=== PATIENT | female | born 1955 | race Caucasian/White ===

== ENCOUNTER 2018-08-09 00:36 | Outpatient (CLI) | payer BC, SELFPAY ==
--- NOTE | 2018-08-09 08:11 | DI.US_ITS ---
SYMPTOMS/DIAGNOSIS: F/U ABNL LABS, R74.8 ABDOMINAL ULTRASOUND: The visualized liver parenchyma is normal in appearance with the exception of two small homogeneous echogenic lesions of the right hepatic lobe as noted on previous ultrasound of 06/16/17. These measure roughly 6 and 9 mm in diameter respectively and appear unchanged from the previous study. These are likely to represent hemangiomas. There is no evidence of cholelithiasis or biliary dilatation. The pancreas appears intact as visualized. The kidneys are unremarkable as is the spleen. The abdominal aorta and IVC are of normal diameter. CONCLUSION: Two small stable presumed hepatic hemangiomas. No evidence of cholelithiasis.
== END 2018-08-09 00:56 ==
PROVIDERS: PCP Nurse Practitioner Family
DX: R74.8 Abnormal levels of other serum enzymes (principal); K76.9 Liver disease, unspecified; D18.03 Hemangioma of intra-abdominal structures
CPT/HCPCS: 76700

== ENCOUNTER 2018-08-27 09:29 | Outpatient (CLI) | payer BC, SELFPAY ==
[2018-08-27 10:48] LABS: Amylase 136 U/L (25-115); Lipase 487 U/L (73-393)
[2018-08-30 17:16] LABS: T3 (Triiodothyronine) Reverse 11 ng/dL (10-24)
== END 2018-08-27 09:49 ==
PROVIDERS: PCP Nurse Practitioner Family
DX: R10.84 Generalized abdominal pain (principal); E03.9 Hypothyroidism, unspecified
CPT/HCPCS: 36415; 83690; 82150; 84482

== ENCOUNTER 2018-09-25 01:48 | Outpatient (CLI) | payer BC, SELFPAY ==
[2018-09-25 08:39] LABS: Iron 129 ug/dL (50-175); Total Iron Binding Capacity 310 ug/dL (250-450); Transferrin Sat 42 % (15-50)
[2018-09-25 08:50] LABS: Anion Gap 6.6 mmol/L (3-11); CO2 29.4 mmol/L (21.0-32.0); Chloride 97 mmol/L (98-107); FREE T4 0.74 ng/dL (0.76-1.46); Potassium 4.3 mmol/L (3.5-5.1); Sodium 133 mmol/L (136-145); TSH 0.36 uIU/mL (0.358-3.74)
[2018-09-25 09:17] LABS: Ferritin 56 ng/mL (8-388)
[2018-09-25 18:00] LABS: Osmolality Serum 276 mos/kg (275-295)
[2018-09-26 10:26] LABS: Thyroperoxidase Antibody 109 U/mL (<61)
[2018-09-28 10:26] LABS: T3 (Triiodothyronine) Reverse 9.4 ng/dL (10-24)
== END 2018-09-25 02:08 ==
PROVIDERS: PCP Nurse Practitioner Family; Visit Provider Nurse Practitioner Family
DX: E03.9 Hypothyroidism, unspecified (principal); R53.82 Chronic fatigue, unspecified; R10.84 Generalized abdominal pain; R25.3 Fasciculation; G62.2 Polyneuropathy due to other toxic agents; G92 Toxic encephalopathy; D89.89 Other specified disorders involving the immune mechanism, not elsewhere classified; G89.4 Chronic pain syndrome; H53.19 Other subjective visual disturbances; T57.0X1 Toxic effect of arsenic and its compounds, accidental (unintentional); T56.0X1D Toxic effect of lead and its compounds, accidental (unintentional), subsequent encounter
CPT/HCPCS: 36415; 80051; 82728; 83540; 83550; 83930; 84436; 84439; 84443; 84480; 84482; 86376

== ENCOUNTER 2018-12-26 09:23 | Outpatient (CLI) | payer BC, SELFPAY ==
[2018-12-26 16:47] LABS: Amylase 115 U/L (25-115); Lipase 292 U/L (73-393)
== END 2018-12-26 09:43 ==
PROVIDERS: PCP Nurse Practitioner Family
DX: E03.9 Hypothyroidism, unspecified (principal); R53.82 Chronic fatigue, unspecified; R10.84 Generalized abdominal pain; R25.3 Fasciculation; G89.4 Chronic pain syndrome; D89.89 Other specified disorders involving the immune mechanism, not elsewhere classified; G62.2 Polyneuropathy due to other toxic agents; G92 Toxic encephalopathy
CPT/HCPCS: 36415; 83690; 82150

== ENCOUNTER 2020-06-10 02:05 | Outpatient (CLI) | payer BC, SELFPAY ==
--- NOTE | 2020-06-10 | DI.US_ITS ---
EXAM: US THYROID CLINICAL HISTORY: THYROID NODULE,E04.1,SABA'S THYROIDITIS,E06.3. TECHNIQUE: Ultrasound thyroid performed using standard protocol. COMPARISON: No exams were available for comparison FINDINGS: ISTHMUS: 2.6 millimeters mm RIGHT LOBE: Size: 2.6 x 1.1 x 1.1 cm LEFT LOBE: Size: 3.1 x 1.0 x 1. 4 cm. Cm Echogenicity: Normal. Homogeneous. Vascularity: Mild hyperemia . Nodules: Few scattered tiny nodules versus cysts bilaterally measuring 2 millimeters or less.. IMPRESSION: Scattered tiny cysts or nodules. Mildly hyperemic gland. No suspicious nodule. DATA REPOSITORY:
== END 2020-06-10 02:06 ==
PROVIDERS: PCP Nurse Practitioner Family; Visit Provider Nurse Practitioner Family
DX: E04.1 Nontoxic single thyroid nodule (principal); E06.3 Autoimmune thyroiditis
CPT/HCPCS: 76536

== ENCOUNTER 2020-08-24 04:12 | Outpatient (CLI) | payer BC, SELFPAY ==
[2020-08-24 08:41] LABS: FREE T4 0.73 ng/dL (0.76-1.46); TSH 6.12 uIU/mL (0.36-3.74)
[2020-08-24 08:51] LABS: T4 6.3 ug/mL (4.7-13.3)
[2020-08-27 12:43] LABS: T3 (Triiodothyronine) Reverse 12 ng/dL (10-24)
== END 2020-08-24 04:13 | disposition home or self-care (01) ==
LOC: LBO 04:12
PROVIDERS: PCP Nurse Practitioner Family; Visit Provider Nurse Practitioner Family
DX: E04.1 Nontoxic single thyroid nodule (principal)
CPT/HCPCS: 36415; 84436; 84439; 84443; 84481; 84482

== ENCOUNTER 2021-10-21 18:29 | Outpatient (REF) | payer OTHER, SELFPAY ==
--- NOTE | 2021-10-21 11:50 | PAPFT_PTH ---
PATIENT: Ofelia Vasquez LOC: [facility] U#:[id number] AGE/SX: 66/F ROOM: RE10/21/[address]: Poonam Soria : 1955 BED: DIS: 10/21/2021 SPEC #: [id number] RECD: 10/21/21 18:34 STATUS: LEESA REEliezer #: [id number] TK: 10/21/21 11:[address]: Poonam Soria DEPT: [facility] Cytology RECD BY: Leidy Hooks ENTERED: 10/21/21 18:35 SP TYPE: PAPFT OTHR DR: Eryn Mi Tissues: 1 - CX/ENDOCX FOR PAP SMEARS Procedures: PAP THIN PREP/UVM Screening Comments: [id number]
== END 2021-10-21 18:30 | disposition home or self-care (01) ==
LOC: LBN 18:29
PROVIDERS: PCP Nurse Practitioner Family; Visit Provider Naturopath
DX: Z12.4 Encounter for screening for malignant neoplasm of cervix (principal)
CPT/HCPCS: 88142

== ENCOUNTER 2021-12-15 12:46 | Outpatient (CLI) | payer OTHER, SELFPAY ==
[2021-12-15 13:06] LABS: ALT 30 U/L (14-59); AST 23 U/L (15-37); Albumin 3.8 g/dL (3.4-5.0); Alkaline Phosphatase 67 U/L (46-116); Amylase 106 U/L (25-115); Anion Gap 5.6 mmol/L (3-11); BUN 19 mg/dL (7-18); Bilirubin, Total 0.2 mg/dL (0.2-1.0); CO2 29.4 mmol/L (21.0-32.0); CREATININE 0.9 mg/dL (0.55-1.02); Calcium 8.9 mg/dL (8.5-10.1); Chloride 100 mmol/L (98-107); Glucose 107 mg/dL (74-106); Lipase 297 U/L (73-393); Potassium 4.4 mmol/L (3.5-5.1); Sodium 135 mmol/L (136-145); Total Protein 7.2 g/dL (6.4-8.2)
== END 2021-12-15 12:47 | disposition home or self-care (01) ==
LOC: LBO 12:47
PROVIDERS: PCP Nurse Practitioner Family; Visit Provider Naturopath
DX: R73.9 Hyperglycemia, unspecified (principal); R85.0 Abnormal level of enzymes in specimens from digestive organs and abdominal cavity
CPT/HCPCS: 36415; 80053; 83690; 82150; 83036

== ENCOUNTER 2022-11-07 05:46 | Observation (INO) | payer MEDICARE, SELFPAY ==
[2022-11-07] VITALS (16 sets, daily range): BP systolic 113–162; BP diastolic 39–93; PULSE 48–78; RESP 16–18; TEMP 35.8–36.9; O2SAT 97–100; BMI 23.6
--- NOTE | 2022-11-07 05:45 | RT.EKG_ITS ---
APPROVED REPORT Exam: Resting ECG Reason for Exam: lower pain Patient Location: E HR:70 bpm ECG Measurements Heart Rate 70 AXIS MD 164 P 56 QRSd 91 QRS 24 QT 382 T 30 QTc 411 Conclusion Sinus rhythm...normal P axis, V-rate 60- 99 Atrial premature complex...SV complex w/ short R-R interval Probable left atrial enlargement...P >50mS, <-0.10mV V1
--- NOTE | 2022-11-07 06:00 | DI.CT_ITS ---
Exam(s) CT ABDOMEN PELVIS W EXAM: CT ABDOMEN PELVIS W CLINICAL HISTORY: RLQ pain. TECHNIQUE: Imaging Protocol: Axial computed tomography images with coronal and sagittal reformatted images were created and reviewed CONTRAST MATERIAL: Intravenous: Omnipaque-350 73cc Oral: None COMPARISON: Prior ultrasound reviewed FINDINGS: VISUALIZED LUNG BASES: No nodules nor pleural effusions evident. ABDOMEN: LIVER: Small benign-appearing hemangiomas in the right hepatic lobe again noted. No dilated intrahep atic ducts. GALLBLADDER/BILIARY: No obvious gallbladder pathology. CBD is not dilated. PANCREAS: No evidence of pancreatic mass nor dilatation of the pancreatic duct. SPLEEN: Spleen is not enlarged. No obvious intrasplenic lesions. Splenic and portal veins are paten t. ADRENALS: There are no significant adrenal masses. KIDNEYS:No cysts evident. No solid renal masses. No calculi nor hydronephrosis.. ABDOMINAL AORTA: Abdominal aorta is not enlarged. LYMPH NODES:There is no retroperitoneal nor paraaortic adenopathy. ABDOMINAL WALL: No evidence of significant anterior abdominal wall nor inguinal hernia. GI: Appendix is abnormally thickened-edematous and distended consistent with acute appendicitis. The re is surrounding inflammatory change fluid as well as some fluid in the dependent aspect of the pelv kt-blw-gi-sac. No formed abscess evident at this time. PELVIS: GI: Appendicitis as above.Edema of the adjacent terminal ileum is most probably reactive. LYMPH NODES: There is no intrapelvic nor inguinal adenopathy. REPRODUCTIVE: Age-appropriate URINARY BLADDER: Mild uniform thickening of the bladder wall noted. Possibly related to under disten marshall versus chronic cystitis. OSSEOUS: No fractures and no significant osseous lesions. Mild degenerative anterolisthesis of L5 upon S1. IMPRESSION: 1. Findings are consistent with acute appendicitis. Abundant surrounding streaking and some free flu id but no formed abscess evident at this time. No obvious free air at this time. 2. Some edema of the terminal ileum and cecum is most probably reactive the acute appendicitis. First read by [facility]. RADIATION DOSE DELIVERED: 594.36mGy.cm Total DLP DATA REPOSITORY: All CT scans at this facility are submitted to the National Radiology Data Registry (NRDR) Dose Index Registry (DIR) with the [employer] (ACR). RADIATION OPTIMIZATION: All CT scans at this facility use at least one of these dose optimization te chniques: automated exposure control; mA and/or kV adjustment per patient size (includes targeted exa ms where dose is matched to clinical indication); or iterative reconstruction.
--- NOTE | 2022-11-07 06:04 | ED.GENADUL_ITS ---
Discharge Plan Disposition Patient Disposition: Admit to [facility] Discharge Details Clinical Impression: Acute appendicitis, Suppurative appendicitis Admit Date/Time: 11/07/22 13:43 Admit Provider: Carmen Rivera Attending Provider: Carmen Rivera Primary Care Provider: Eryn Mi ED Provider: Shay Jamison Discharge Data Discharge Date/Time-TO BE ENTERED AT DEPARTURE: 11/07/22 10:15 Discharge Physician: Shay Jamison Medical Decision Making Lab Data Lab results reviewed: Yes I reviewed the patient's lab results. HPI General Date/Time Provider Initiated Documentation: 11/07/22 06:02 . HPI Narrative: Patient presents emergency department complaining of right lower quadrant abdominal pain that started 3 days ago. Reports that the pain started in the ep igastric and midepigastric area and has moved to the right lower quadrant. She thought it was getting better and decided not to come in but her insisted for the pain is getting severe and she is not eating because she was trying to rest her bowels patient denies any fever denies any chills. Reports the pain is a 10/08 pain Related Data Home Medications Medication Instructions Recorded Confirmed Hm-Et Binder 11/07/22 liver extract cap PO DAILY 11/07/22 minerals tab PO 11/07/22 thyme oil applic miscellaneous 11/07/22 Allergies Allergy/AdvReac Type Severity Reaction Status Date / Time gluten Allergy Unverified 11/07/22 10:19 General Stated Complaint: Abd Prob CONSUELO: 3 Review of Systems Narrative: Review of Systems: Constitutional: No fevers, chills, sweats Eye: No recent visual problems ENT: No ear pain, nasal congestion, sore throat Respiratory: No shortness of breath, cough Cardiovascular: No Chest pain, palpitations, syncope Gastrointestinal: No nausea, vomiting, diarrhea Genitourinary: No hematuria Jimi/Lymph: Negative for bruising tendency, swollen lymph glands Endocrine: Negative for excessive thirst, excessive hunger Musculoskeletal: No back pain, neck pain, joint pain, muscle pain, decreased range of motion Integumentary: No rash, pruritus, abrasions Neurologic: Alert & oriented X 4 Psychiatric: No anxiety, depression PFSH All Active Problems (Updated 11/07/22 @ 23:20 by Shay Jamison MD) Suppurative appendicitis (Acute) Acute appendicitis (Acute) Medical History (Updated 11/07/22 @ 23:20 by Shay Jamison MD) Anxiety Disease 11/07/22: Chronic inflammatory response syndrome, per pt. -BR GERD (gastroesophageal reflux disease) Raheem's thyroiditis Surgical History (Updated 11/07/22 @ 21:43 by Carmen Rivera DO) S/P laparoscopic appendectomy Social History Smoking/Tobacco Use Status: Never Smoking risk assessment performed?: Yes Alcohol Intake: never Substance use type: does not use Housing: house Do you feel safe in your relationship?: Yes Exam Narrative Exam Narrative: Exam; vitals signs as reported above Constitutional; In no acute distress, afebrile General: cooperative, healthy appearing, comfortable and no acute distress HEENT: Head: normal to inspection, no palpable skull fracture and normocephalic Eyes: l: appearance normal, both eyes and all related structures ]Pupils: PERRL EOM: EOM intact bilaterally Direct ophthalmoscopy: normal light reflex, normal conjunctiva, normal visual acuity Neck no JVD, supple Neck: normal visual inspection, full ROM and no lymphadenopathy Chest Chest: normal inspection of the chest Respiratory : normal respiratory effort and able to speak in complete sentences Cardio Rate: regular rate Rhythm: regular rhythm normal heart sounds S1 and S2 no murmurs, gallops, or rubs GI Inspection: normal to inspection, normal bowel sounds, soft, tenderness to palpation with positive rebound on the right lower quadrant non distended, no organomegally Back/Spine/ no CVA tenderness Thoracic/Lumbar Spine: no tenderness or deformities Skin no rashes or lesions Neuro: patient alert and no meningeal signs, Cranial Nerves: CN's II-XI intact bilaterally, Cognition: normal cognition, Speech: speech normal, Gait: normal gait, Depp tendon reflexes normal 2+ Extremities, no edema, full range of motion, normal strength : normal Course Vital Signs Vital signs: Vital Signs Temperature 36.9 C 11/07/22 05:50 Pulse 78 11/07/22 05:50 Respiratory Rate 16 11/07/22 05:50 Blood Pressure 147/78 H 11/07/22 05:50 Pulse Oximetry 99 11/07/22 05:50 Temperature 36.9 C 11/07/22 05:50 Temperature Source Oral 11/07/22 05:50 Pulse 78 11/07/22 05:50 Respiratory Rate 16 11/07/22 05:50 Respiratory Effort Normal, Non-Labored 11/07/22 05:55 Blood Pressure 147/78 H 11/07/22 05:50 Blood Pressure Position Sitting 11/07/22 05:50 Pulse Oximetry 99 11/07/22 05:50 Oxygen Delivery Method Room Air 11/07/22 05:50 Oxygen Flow Rate 0 11/07/22 05:50 Pain Level 8 11/07/22 05:50 Vital Signs & Lab Results Vital Signs Most Recent Vital Signs: Most Recent Vital Signs Temp Pulse Resp BP Pulse Ox 36.9 C 78 16 147/78 H 99 11/07/22 05:50 11/07/22 05:50 11/07/22 05:50 11/07/22 05:50 11/07/22 05:50 Point of Care Results Nursing Point of Care Results: No Data to Display Lab Results 11/07/22 18:45 11/07/22 06:00 Blood Type / Crossmatch: No Data to Display Complete Blood Count: White Blood Count 11.07 10^3/uL (4.4-10.8) H 11/07/22 18:45 Red Blood Count 4.27 10^6/uL (3.93-5.22) 11/07/22 18:45 Hemoglobin 13.7 g/dL (11.2-15.7) 11/07/22 18:45 Hematocrit 40.5 % (36.0-46.0) 11/07/22 18:45 Platelet Count 213 10^3/uL (130-400) 11/07/22 18:45 Complete Metabolic Panel: Sodium 138 mmol/L (136-145) 11/07/22 06:00 Potassium 3.9 mmol/L (3.5-5.1) 11/07/22 06:00 Chloride 101 mmol/L (98-107) 11/07/22 06:00 Carbon Dioxide 29.2 mmol/L (21.0-32.0) 11/07/22 06:00 BUN 10 mg/dL (7-18) 11/07/22 06:00 Creatinine 0.9 mg/dL (0.55-1.02) 11/07/22 06:00 Est GFR (CKD-EPI 2021) 70.51 (mL/min/1.73m2) 11/07/22 06:00 Calcium 8.8 mg/dL (8.5-10.1) 11/07/22 06:00 Albumin 3.7 g/dL (3.4-5.0) 11/07/22 06:00 Glucose 104 mg/dL (74-106) 11/07/22 06:00 Liver Function Panel: Alanine Aminotransferase (ALT/SGPT) 35 U/L (14-59) 11/07/22 06: 00 Aspartate Amino Transf (AST/SGOT) 23 U/L (15-37) 11/07/22 06:00 Coagulation Panel: INR International Normalized Ratio 0.9 (0.9-1.1) 11/07/22 06:0 0 Prothrombin Time 9.5 sec (9.3-11.0) 11/07/22 06:00 Cardiac Panel: No Data to Display Arterial Blood Gas: No Data to Display Venous Blood Gas: No Data to Display Pancreas Panel: Lipase 67 U/L (16-77) 11/07/22 06:00 Thyroid Panel: No Data to Display Infectious Disease: No Data to Display Blood Cultures: No Data to Display Toxicology Panel: No Data to Display
[2022-11-07 06:11] LABS: Abs Immature Grans 0.02 10^3/uL (0.0-0.06); Absolute Basophil Count 0.04 10^3/uL (0.0-0.2); Absolute Eosinophil Count 0.09 10^3/uL (0.0-0.7); Absolute Lymphocyte Count 1.68 10^3/uL (1.2-3.4); Absolute Monocyte Count 0.88 10^3/uL (0.1-0.8); Absolute Neutrophil Count 4.64 10^3/uL (1.2-6.7); Basophils % 0.5; Eosinophils % 1.2; HCT 40.6 % (36.0-46.0); HGB 13.9 g/dL (11.2-15.7); Immature Grans % 0.3; Lymphocytes % 22.9; MCH 32.1 pg (27.0-33.0); MCHC 34.2 % (32.0-36.0); MCV 94 fL (80-95); MPV 8.7 fL (8.0-11.0); Neutrophils % 63.1; Platelet Count 225 10^3/uL (130-400); RBC 4.33 10^6/uL (3.93-5.22); RDW 11.9 % (11.7-14.6); RDW-SD 41.8 fL; WBC 7.35 10^3/uL (4.4-10.8)
[2022-11-07 06:22] LABS: Lipase 67 U/L (16-77)
[2022-11-07 06:23] LABS: INR 0.9 (0.9-1.1); Prothrombin Time 9.5 sec (9.3-11.0)
[2022-11-07 06:25] LABS: Bilirubin Negative (Negative); Blood Trace-intact (Negative); Clarity Clear (Clear); Glucose Negative (Negative); Ketones 15 mg/dL (Negative); Leukocyte Esterase Negative (Negative); Nitrite Negative (Negative); Specific Gravity <= 1.005 (1.005-1.025); Urobilinogen 0.2 mg/dL (Up to 0.2); pH 5.5 (5-8)
[2022-11-07 06:27] LABS: ALT 35 U/L (14-59); AST 23 U/L (15-37); Albumin 3.7 g/dL (3.4-5.0); Alkaline Phosphatase 56 U/L (46-116); Anion Gap 7.8 mmol/L (3-11); BUN 10 mg/dL (7-18); Bilirubin, Total 0.5 mg/dL (0.2-1.0); CO2 29.2 mmol/L (21.0-32.0); CREATININE 0.9 mg/dL (0.55-1.02); Calcium 8.8 mg/dL (8.5-10.1); Chloride 101 mmol/L (98-107); Estimated GFR 70.51 (mL/min/1.73m2); Glucose 104 mg/dL (74-106); Potassium 3.9 mmol/L (3.5-5.1); Sodium 138 mmol/L (136-145); Total Protein 7.1 g/dL (6.4-8.2)
[2022-11-07 06:32] LABS: Bacteria Rare HPF (Negative); C & S Indicated? No; Casts Negative LPF (Negative); Crystals Negative HPF (Negative); Epithelial Cells Rare HPF (Negative); Mucus Negative (Negative); Other Cells Negative (Negative); WBC 0-2 HPF (0-5)
[2022-11-07] MEDS: Normal Saline 1,000 ML 1000 ML IV (06:49)
[2022-11-07] MEDS: Omnipaque 350 MG/ML 100 ML BTL 73 ML IJ (07:07)
[2022-11-07] MEDS: Normal Saline - Diluent 50 ML VIAL IV (07:08)
--- NOTE | 2022-11-07 07:33 | DI.VRAD_ITS ---
PROCEDURE INFORMATION: Exam: CT Abdomen And Pelvis With Contrast Exam date and time: 11/07/2022 6:59 AM Age: 67 years old Clinical indication: Abdominal pain; Generalized TECHNIQUE: Imaging protocol: Computed tomography of the abdomen and pelvis with contrast. Contrast material: OMNIPAQUE 350; Contrast volume: 73 ml; Contrast route: INTRAVENOUS (IV); COMPARISON: No relevant prior studies are available for comparison. FINDINGS: Limitations: Mild motion artifact. Liver: Low attenuation lesions in the liver too small to accurately characterize on CT. Gallbladder and bile ducts: No radiodense gallbladder calculi seen. Pancreas: No CT evidence for acute pancreatitis. Spleen: No splenomegaly. Adrenal glands: Adrenal thickening. Kidneys and ureters: No hydronephrosis or evidence for pyelonephritis. Stomach and bowel: Apparent gastric thickening commensurate with underdistention. No intestinal obstruction is evident. Retained fecal material is present in the colon. Appendix: The appendix is identified in the anterior right lower quadrant. It is thick-walled, fluid-filled, dilated to 11 mm, and surrounded by inflammatory change. Findings are consistent with appendicitis. Mild thickening of the terminal ileum and cecum is likely reactive. Intraperitoneal space: Small amount of low-density pelvic fluid. Vasculature: Arterial calcifications. Lymph nodes: No acute findings. Urinary bladder: Mild bladder wall thickening commensurate with underdistention. Reproductive: No acute findings. Bones/joints: No pertinent acute abnormality seen. Soft tissues: No pertinent acute abnormality seen. IMPRESSION: 1. Appendicitis. 2. Additional findings as above. 3. THIS REPORT CONTAINS FINDINGS THAT MAY BE CRITICAL TO PATIENT CARE. The findings were verbally communicated via telephone conference with SAIDA SHAW at 7:32 AM EDT on 11/07/2022. The findings were acknowledged and understood. Dictated and Authenticated by: Diana Barraza MD. Ordering:RUTHANN Day MD
[2022-11-07] MEDS: AMPICILLIN/SULBACTAM 3 GM in Normal Saline 100 ML IVPB (08:12)
--- NOTE | 2022-11-07 09:23 | W.PM.HP.N ---
Date of service: 11/07/22 Time of Service: Assessment and Plan Assessment and plan (1) Acute appendicitis: Status: Acute Assessment and plan: Informed consent is obtained for the procedural (explained in simple layman's terms that the pt and/or family could understand) explaining risks vs benefits and alternatives to the procedure and consequences if we do not do the procedure. Risks include but are not limited to:bleeding,infections, pneumonia, blood clots/DVT/PE, anesthesia(aspiration, damage to teeth/airway/KS/CVA//prolonged mechanical ventilation/PTX/IV infections), damage to bowel, bladder,blood vessels, ureters. Damage to solid organs requiring removal. Infertility. Leakage from anastomosis requiring colostomy. Wound infections requirng further surgery. Scarring and disfigurement. Subsequent bowel obstructions from scar tissue. Possible open procedure if minimaly invsive procedure is being attempted. Abscess and stump appendicitis as well as others. (2) GERD (gastroesophageal reflux disease): (3) Raheem's thyroiditis: History of Present Illness Narrative: Patient has been feeling poorly for the past 3 days. She has had right lower quadrant abdominal pain. She has no nausea vomiting. She just does not have much appetite. She is getting some pain that radiates down her right leg. She had a similar episode in 2018 but her ultrasound was negative. Today the pain is not improving. She has chronic autoimmune disease. She is not on any medications for this. She was hypothyroid but has weaned herself off of medications. She has never had any abdominal surgeries before. She is not diabetic. She has never had a heart attack or stroke. She does not smoke cigarettes. She has no asthma or emphysema. She is active. She has no known drug allergies. CT: GI: Appendix is abnormally thickened-edematous and distended consistent with acute appendicitis.? There is surrounding inflammatory change fluid as well as some fluid in the dependent aspect of the upiudt-nlk-kt-sac.? No formed abscess evident at this time. PELVIS:? GI: Appendicitis as above.Edema of the adjacent terminal ileum is most probably reactive. LYMPH NODES: There is no intrapelvic nor inguinal adenopathy. REPRODUCTIVE: Age-appropriate URINARY BLADDER: Mild uniform thickening of the bladder wall noted.? Possibly related to under distension versus chronic cystitis. OSSEOUS: No fractures and no significant osseous lesions. Mild degenerative anterolisthesis of L5 upon S1. IMPRESSION: 1. Findings are consistent with acute appendicitis.? Abundant surrounding streaking and some free fluid but no formed abscess evident at this time.? No obvious free air at this time. 2. Some edema of the terminal ileum and cecum is most probably reactive the acute appendicitis. Review of Systems All systems reviewed & are unremarkable except as noted in HPI and below PFSH All Active Problems Acute appendicitis (Acute) Medical History Anxiety Disease 11/07/22: Chronic inflammatory response syndrome, per pt. -BR GERD (gastroesophageal reflux disease) Raheem's thyroiditis Social History Smoking/Tobacco Use Status: Never Smoking risk assessment performed?: Yes Alcohol Intake: never Substance use type: does not use Housing: apartment Do you feel safe in your relationship?: Yes Meds Allergies and Home Medications Allergies Allergy/AdvReac Type Severity Reaction Status Date / Time gluten Allergy Unverified 11/07/22 10:19 Home Medications Medication Instructions Recorded Confirmed Type Hm-Et Binder 11/07/22 History liver extract cap PO DAILY 11/07/22 History minerals tab PO 11/07/22 History thyme oil applic miscellaneous 11/07/22 History Exam Const General: cooperative, healthy appearing, comfortable and no acute distress Nutritional Appearance: average body habitus Orientation: alert, awake and oriented x3 Other: PHYSICAL EXAM GENERAL APPEARANCE: Alert, healthy appearance, oriented, x 3,? in no acute distress HYDRATION: Well hydrated HEAD, EYES, EARS, NECK, THROAT: Head is normocephalic, pupils equal, round, reactive to light and accommodation, ocular movement intact, sclera clear and no jaundice. ?Dentition intact. No sore throat.? No jaw pain. No thrush LUNGS: normal respiration/normal chest excursion. ?Clear to auscultation bilaterally. ?No wheeze. ?HEART: Regular rate and rhythm. no murmurs EXTREMITY: No edema or cyanosis.? no leg pain, redness, swelling.? ABDOMEN: soft and non-tender to palpation.? Normal bowel sounds.? Right lower quadrant pain with rebound and guarding. It does radiate down her right leg. Results Labs 11/07/22 06:00 11/07/22 06:00 Labs: Laboratory Results - last 24 hr 11/07/22 11/07/22 11/07/22 06:00 06:00 06:00 WBC RBC Hgb Hct MCV MCH MCHC RDW Plt Count MPV Immature Gran % Neutrophils % Lymphocytes % Monocytes % Eosinophils % Basophils % Nucleated RBC % Absolute Neutrophils Absolute Lymphocytes Absolute Monocytes Absolute Eosinophils Absolute Basophils PT 9.5 INR 0.9 Sodium 138 Potassium 3.9 Chloride 101 Carbon Dioxide 29.2 Anion Gap 7.8 BUN 10 Creatinine 0.9 Est GFR (CKD-EPI 2020) 70.51 Glucose 104 Calcium 8.8 Total Bilirubin 0.5 AST 23 ALT 35 Alkaline Phosphatase 56 Total Protein 7.1 Albumin 3.7 Lipase 67 Urine Color Urine Clarity Urine pH Ur Specific [place] Urine Protein Urine Ketones Urine Blood Urine Nitrite Urine Bilirubin Urine Urobilinogen Ur Leukocyte Esterase Urine RBC Urine WBC Ur Epithelial Cells Urine Crystals Urine Bacteria Urine Casts Urine Mucus Urine Other Ur Culture Indicated? Urine Glucose 11/07/22 11/07/22 06:00 06:15 WBC 7.35 RBC 4.33 Hgb 13.9 Hct 40.6 MCV 94 MCH 32.1 MCHC 34.2 RDW 11.9 Plt Count 225 MPV 8.7 Immature Gran % 0.3 Neutrophils % 63.1 Lymphocytes % 22.9 Monocytes % 12.0 Eosinophils % 1.2 Basophils % 0.5 Nucleated RBC % 0.0 Absolute Neutrophils 4.64 Absolute Lymphocytes 1.68 Absolute Monocytes 0.88 H Absolute Eosinophils 0.09 Absolute Basophils 0.04 PT INR Sodium Potassium Chloride Carbon Dioxide Anion Gap BUN Creatinine Est GFR (CKD-EPI 2020) Glucose Calcium Total Bilirubin AST ALT Alkaline Phosphatase Total Protein Albumin Lipase Urine Color Yellow Urine Clarity Clear Urine pH 5.5 Ur Specific [place] <= 1.005 Urine Protein Negative Urine Ketones 15 H Urine Blood Trace-intact H Urine Nitrite Negative Urine Bilirubin Negative Urine Urobilinogen 0.2 Ur Leukocyte Esterase Negative Urine RBC 3-5 H Urine WBC 0-2 Ur Epithelial Cells Rare Urine Crystals Negative Urine Bacteria Rare Urine Casts Negative Urine Mucus Negative Urine Other Negative Ur Culture Indicated? No Urine Glucose Negative Last Vital Signs Temp 36.7 C 11/07/22 08:22 Pulse 61 11/07/22 08:22 Resp 18 11/07/22 08:22 BP 144/67 H 11/07/22 08:22 Pulse Ox 100 11/07/22 08:22 CBC White Blood Count 7.35 10^3/uL (4.4-10.8) 11/07/22 Red Blood Count 4.33 10^6/uL (3.93-5.22) 11/07/22 Hemoglobin 13.9 g/dL (11.2-15.7) 11/07/22 Hematocrit 40.6 % (36.0-46.0) 11/07/22 Mean Corpuscular Volume 94 fL (80-95) 11/07/22 Mean Corpuscular Hemoglobin 32.1 pg (27.0-33.0) 11/07/22 Mean Corpuscular Hemoglobin Concent 34.2 % (32.0-36.0) 11/07/22 Red Cell Distribution Width 11.9 % (11.7-14.6) 11/07/22 Platelet Count 225 10^3/uL (130-400) 11/07/22 Mean Platelet Volume 8.7 fL (8.0-11.0) 11/07/22 Neutrophils % 63.1 11/07/22 Lymphocytes % 22.9 11/07/22 Monocytes % 12.0 11/07/22 Eosinophils % 1.2 11/07/22 Basophils % 0.5 11/07/22 Immature Granulocytes % 0.3 11/07/22 Comprehensive Metabolic Panel Sodium 138 mmol/L (136-145) 11/07/22 06:00 Potassium 3.9 mmol/L (3.5-5.1) 11/07/22 06:00 Chloride 101 mmol/L (98-107) 11/07/22 06:00 Carbon Dioxide 29.2 mmol/L (21.0-32.0) 11/07/22 06:00 BUN 10 mg/dL (7-18) 11/07/22 06:00 Creatinine 0.9 mg/dL (0.55-1.02) 11/07/22 06:00 Estimated GFR/1.73 m2 >= 60.00 (mL/min/1.73m2) 12/15/21 12:15 Glucose 104 mg/dL (74-106) 11/07/22 06:00 Calcium 8.8 mg/dL (8.5-10.1) 11/07/22 06:00 Total Bilirubin 0.5 mg/dL (0.2-1.0) 11/07/22 06:00 ALT 35 U/L (14-59) 11/07/22 06:00 AST 23 U/L (15-37) 11/07/22 06:00 Alkaline Phosphatase 56 U/L (46-116) 11/07/22 06:00 Total Protein 7.1 g/dL (6.4-8.2) 11/07/22 06:00 Albumin 3.7 g/dL (3.4-5.0) 11/07/22 06:00 Thyroid results Thyroid Dysfunction Results: Thyroid US 06/10/20 TSH 6.12 uIU/mL (0.36-3.74) H 08/24/20 Free T4 0.73 ng/dL (0.76-1.46) L 08/24/20 Total T3 43 ng/dl (60-181) L 12/01/14 Thyroglobulin Antibody 146 U/mL (<61) H 06/26/17 Time Spent Time spent with Patient: 40-54 minutes Time was spent: preparing to see the patient(eg.review tests), obtaining and/or reviewing separately otained hiistory, ordering medications,tests, procedures, referring, communicating with other health day care center director, indepentently interpreting results, counseling the patient and care coordination
[2022-11-07] MEDS: Lactated Ringers 1,000 ML 125 ML IV (09:30)
--- NOTE | 2022-11-07 10:01 | ANES.PREOP_ITS ---
General Info Date of Service Date Performed: 11/07/22 Height: 4 ft 10 in Weight: 51.256 kg Body Mass Index (BMI): 23.6 Surgical Procedure: Operation Date: 11/07/22 12:10 Proposed Procedure Side Surgeon p Appendectomy Laparoscopic Carmen Rivera DO Meds Allergies and Home Medications Allergies Allergy/AdvReac Type Severity Reaction Status Date / Time gluten Allergy Unverified 11/07/22 08:15 Home Medication Medication Instructions Recorded Unknown [No Known Home Meds] 11/07/22 Current Visit Medications: Current Medications Generic Name Dose Route Start Last Admin Trade Name Freq PRN Reason Stop Dose Admin Ringer's Solution 1,000 mls @ 125 mls/hr 11/07/22 09:30 IV INFUSION KEN Piperacillin Sod/Tazobactam 50 mls @ 100 mls/hr 11/07/22 09:30 Sod 3.375 gm/ Sodium Chloride IVPB ISO COORDINATOR KEN Sodium Chloride 1,000 mls @ 30 mls/hr 11/07/22 09:45 Saline 1000ml Bag IV INFUSION KEN Iohexol 73 ml 11/07/22 07:15 11/07/22 07:07 Omnipaque 350 Mg/Ml 100 Ml Btl IJ 12/07/22 23:59 73 ml DIRECTED KEN Administration Morphine Sulfate 3 mg 11/07/22 09:27 Morphine 4 Mg/Ml Syr IVP Q1H PRN PRN Ondansetron HCl 4 mg 11/07/22 09:27 Ondansetron 4 Mg/2 Ml Vial IVP Q4H PRN PRN Sodium Chloride 50 ml 11/07/22 07:15 11/07/22 07:08 Normal Saline - Diluent 50 Ml Vial IV 50 ml .FOR DI USE KEN Administration PFSH Active Problems Active Problems: Problem Status Onset Code Acute appendicitis K35.80 Medical History Medical History Anxiety GERD (gastroesophageal reflux disease) Raheem's thyroiditis Tobacco Smoking/Tobacco Use Status: Never Alcohol Alcohol Intake: never Substance Use Substance use type: does not use Vital Signs and Lab Results Vital Signs Most Recent Vital Signs in EMR: Most Recent Vital Signs Temp Pulse Resp BP Pulse Ox 36.7 C 61 18 144/67 H 100 11/07/22 08:22 11/07/22 08:22 11/07/22 08:22 11/07/22 08:22 11/07/22 08:22 Lab Results 11/07/22 06:00 11/07/22 06:00 Blood Type / Crossmatch: No Data to Display Complete Blood Count: White Blood Count 7.35 10^3/uL (4.4-10.8) 11/07/22 06:00 Red Blood Count 4.33 10^6/uL (3.93-5.22) 11/07/22 06:00 Hemoglobin 13.9 g/dL (11.2-15.7) 11/07/22 06:00 Hematocrit 40.6 % (36.0-46.0) 11/07/22 06:00 Platelet Count 225 10^3/uL (130-400) 11/07/22 06:00 Complete Metabolic Panel: Sodium 138 mmol/L (136-145) 11/07/22 06:00 Potassium 3.9 mmol/L (3.5-5.1) 11/07/22 06:00 Chloride 101 mmol/L (98-107) 11/07/22 06:00 Carbon Dioxide 29.2 mmol/L (21.0-32.0) 11/07/22 06:00 BUN 10 mg/dL (7-18) 11/07/22 06:00 Creatinine 0.9 mg/dL (0.55-1.02) 11/07/22 06:00 Est GFR (CKD-EPI 2020) 70.51 (mL/min/1.73m2) 11/07/22 06:00 Calcium 8.8 mg/dL (8.5-10.1) 11/07/22 06:00 Albumin 3.7 g/dL (3.4-5.0) 11/07/22 06:00 Glucose 104 mg/dL (74-106) 11/07/22 06:00 Liver Function Panel: Alanine Aminotransferase (ALT/SGPT) 35 U/L (14-59) 11/07/22 06: 00 Aspartate Amino Transf (AST/SGOT) 23 U/L (15-37) 11/07/22 06:00 Coagulation Panel: INR International Normalized Ratio 0.9 (0.9-1.1) 11/07/22 06:0 0 Prothrombin Time 9.5 sec (9.3-11.0) 11/07/22 06:00 Cardiac Panel: No Data to Display Arterial Blood Gas: No Data to Display Venous Blood Gas: No Data to Display Pancreas Panel: Lipase 67 U/L (16-77) 11/07/22 06:00 Thyroid Panel: No Data to Display Infectious Disease: No Data to Display Blood Cultures: No Data to Display Toxicology Panel: 2 No Data to Display Anesthesia Assessment and Plan Anesthesia History Personal History: No History of Anesthesia Complications Family History: No Family History of Anesthesia Complications Exercise Tolerance Exercise Tolerance: Metabolic Equivalents>4 Pertinent Negatives Pertinent Negatives: Other (Positive GERD, No Rx) Cardiac & Pulmonary Exam Cardiac Exam: Normal S1/S2 Heart Sounds Pulmonary Exam: Clear Bilateral Breath Sounds Implantable Cardiac Device Does patient have a Pacemaker or an ICD?: No Airway Exam Known Difficult Airway: No Mallampati Class: 1 Mouth Opening: Normal (> 3cm) Thyromental Distance: Greater than 3 cm Neck Range of Motion: Full ROM Neck Circumference: Normal Teeth Condition: Normal Dentition ASA Classification ASA Score: ASA 2 Emergency Case?: No NPO Status NPO Status: NPO Clears >2 hours, Solids >8 hours Anesthesia Plan Resuscitation Status: Full Code Anesthesia Technique: General Anesthesia Airway Planned: Endotracheal Tube Monitors Used: Standard Monitors
[2022-11-07] MEDS: Normal Saline 1,000 ML 30 ML IV (11:01)
--- NOTE | 2022-11-07 11:18 | W.PM.OP ---
Date of service: 11/07/22 Time of Service: 14:09 Operative Note Operative Note DATE OF PROCEDURE: 11/07/22 PRE-OP DIAGNOSIS: acute appendicitis POST-OP DIAGNOSIS: other (Separative appendicitis) PROCEDURE: Laparoscopic appendectomy SURGEON: Carmen Rivera [employer] PROFESSOR: Jeremiah Roa ANESTHESIA TYPE: Local By Surgeon and General LMA/ETT Refer to Anesthesia Record ESTIMATED BLOOD LOSS: 10 PATHOLOGY: other COMPLICATIONS: None Patient was transported to: PACU Patient's condition: stable Procedure Description: INDICATIONS: The patient has signs and symptoms compatible with acute appendicitis and is brought to the OR for laparoscopic appendectomy, possible open procedure. Informed consent is obtained for the procedural (explained in simple layman's terms that the pt and/or family could understand) explaining risks vs benefits and alternatives to the procedure and consequences if we do not do the procedure. Risks include but are not limited to:bleeding,infections, pneumonia, blood clots/DVT/PE, anesthesia(aspiration, damage to teeth/airway/[place]/CVA//prolonged mechanical ventilation/PTX/IV infections), damage to bowel, bladder,blood vessels, ureters. Damage to solid organs requiring removal. Infertility. Leakage from anastomosis requiring colostomy. Wound infections requirng further surgery. Scarring and disfigurement. Subsequent bowel obstructions from scar tissue. Possible open procedure if minimaly invsive procedure is being attempted. Abscess and stump appendicitis as well as others. DESCRIPTION OF PROCEDURE: The patient was brought to the operating room suite and placed in supine position. Anesthesia was administered per the Department of Anesthesia. A Saba catheter and OG tube are placed. The patient was prepped and draped in the usual sterile fashion using ChloraPrep scrub solution. Pause for the cause was done. 30 mL of 1% buffered was used for local anesthetization. A stab incision was made in the umbilicus and the Veress was inserted. Drop test was positive and insufflation was begun. When 15 mm of pressure was noted on the monitor, the Veress was removed, a #5 port inserted. Camera inserted through the port shows no damage to underlying structures. Bowel, liver and stomach that are visualized are normal in appearance. Pelvic organs are not visualized. The appendix is inflamed, erythematous,enlarged, & distended. There is purulent drainage around the appendix itself, but there is no drainage in the pelvis around the rest of the abdomen. It is not feculent. The appendix is adhered down to the small bowel and the peritoneal sidewall. I am able to tease it off of the sidewall and the cecum itself. there is no purulent drainage in the pelvis. A 12 mm port was then placed in the suprapubic position under direct visualization following creation of a local field block as well as a second 5 mm port in the LLQ. A LigaSure was used to take down the adhesions and to divide the appendiceal mesentery. The appendix is elevated and a rent dissected into the mesentery. The base of the appendix is healthy and will hold maribel. A Endo-LUZMARIA stapler placed across the mesentery and fired. The appendix is placed in a bag and brought out. There is no bleeding or enteric leakage from the staple lines. The pt does not require a drain. The abdomen was copiously irrigated with a liter of saline. All saline is evacuated. A drain is not placed. The scope and ports are removed. Pneumoperitoneum is evacuated. The fascia under the 12 mm port is closed with 0 Vicryl. There was no bleeding from the port sites as when they removed and the pneumoperitoneum evacuated. The wounds were copiously irrigated and closed in 2 layers with 4-0 Monocryl.? Skin glue is used.? Sterile dressings are applied. The patient tolerated the procedure without complication, transferred to the recovery room in stable condition. Family was apprised of patient condition. Patient will be in needed for IV antibiotics, observation, nursing care
[2022-11-07] MEDS: PIPERACILLIN/TAZO 3.375 GM in Normal Saline 50 ML IVPB ×3 (12:52→23:54)
--- NOTE | 2022-11-07 13:30 | APP_PTH ---
PATIENT: Ofelia Vasquez LOC: [id number]#:[id number] AGE/SX: 67/F ROOM: 230 RE11/07/[address]: Carmen Rivera : 1955 BED: A DIS: 11/08/2022 SPEC #: [id number] RECD: 11/07/22 17:08 STATUS: LEESA REQ #: [id number] TK: 11/07/22 13:[address]: Carmen Rivera DEPT: Surgical Specimen RECD BY: Leidy Hooks ENTERED: 11/07/22 17:09 SP TYPE: Appendix OTHR DR: Eryn Mi Tissues: 1 - APPENDIX NOT INCIDENTAL Procedures: GROSS AND MICRO LEVEL 3 Comments: [id number]
--- NOTE | 2022-11-07 14:38 | W.ANESPOSTOP ---
Postoperative Evaluation Date, Time and Location Date Performed: 11/07/22 Time Performed: 14:38 Patient Location: Day Surgery Unit Vital Signs Most Recent Imported Vital Signs: Most Recent Vital Signs Temp Pulse Resp BP Pulse Ox 36.4 C L 55 L 17 130/76 99 11/07/22 14:20 11/07/22 14:34 11/07/22 14:34 11/07/22 14:34 11/07/22 14:34 Pain Score Most Recent Pain Score: Most Recent Pain Score Pain Level 0 11/07/22 14:34 Assessment Mental Status: Awake (Alert & Oriented to Patient Baseline) Airway and Respiratory Function: Patent airway with normal (patient baseline) respiratory exam Cardiovascular Function: Hemodynamically Stable Hydration Status: Adequately Hydrated Nausea & Vomiting: No Nausea or Vomiting Pain: Pt. Denies Any Pain Peripheral Nerve Block: Patient did not receive a nerve block
[2022-11-07 18:55] LABS: Abs Immature Grans 0.04 10^3/uL (0.0-0.06); Absolute Basophil Count 0.01 10^3/uL (0.0-0.2); Absolute Lymphocyte Count 0.53 10^3/uL (1.2-3.4); Absolute Monocyte Count 0.28 10^3/uL (0.1-0.8); Absolute Neutrophil Count 10.21 10^3/uL (1.2-6.7); Basophils % 0.1; HCT 40.5 % (36.0-46.0); HGB 13.7 g/dL (11.2-15.7); Immature Grans % 0.4; Lymphocytes % 4.8; MCH 32.1 pg (27.0-33.0); MCHC 33.8 % (32.0-36.0); MCV 95 fL (80-95); Monocytes % 2.5; Neutrophils % 92.2; Platelet Count 213 10^3/uL (130-400); RBC 4.27 10^6/uL (3.93-5.22); RDW-SD 41.9 fL; WBC 11.07 10^3/uL (4.4-10.8)
--- NOTE | 2022-11-07 21:42 | PGE_ITS ---
Date of Service Date of service: 11/07/22 Time of Service: 17:00 Assessment and Plan Assessment and plan (1) Suppurative appendicitis: Status: Acute Assessment and plan: The patient is doing well post-op. Their pain is well controlled. They are having no nausea or vomiting. The pt is not having any chest pain or SOB, productive cough; no calf pain or swelling. The pt is making good urine. The pt pain is adequately controlled. The case was discussed with nursing and patients progress reviewed. Because of the degree of disease and the risk of infection, patient will be kept overnight for IV antibiotics. Patient does not want any ibuprofen or Tylenol for pain. She feels good and has no pain currently. She is up walking around. All of the pt's home medications were addressed and adjusted accordingly for their oral intact status. HEENT: no jaundice. no eye pain/drainage/redness/swelling. mild sore throat cardio- NSR no chest pain, BP stable. pulm: no sob or productive cough. no hemoptysis incision- clean/dry. dressing intact no excessive bleeding or drainage I discussed with the patient and/or their family about the findings in surgery and the pt's prognosis. We reviewed expectations for progress in the hospital; what the pt could expect for recovery time and length of stay. We discussed the importance of walking and pulmonary toilet to avoid blood clots and pneumonia. Continue current plans for pulmonary toilet, GI and DVT prophylaxis. We shall continue the current plan for pain management as it is at an appropriate level a nd working well for the pt. Appropriate measures will be taken for constipation prevention as well, and this was also reviewed with the pt. A wound care plan was reviewed with nursing as well. see orders (2) Acute appendicitis: Status: Acute (3) S/P laparoscopic appendectomy: (4) Anxiety: (5) GERD (gastroesophageal reflux disease): (6) Raheem's thyroiditis: Objective Last Vital Signs Temp 36.5 C 11/07/22 18:42 Pulse 63 11/07/22 18:42 Resp 16 11/07/22 18:42 BP 162/77 H 11/07/22 18:42 Pulse Ox 98 11/07/22 18:42 Laboratory Results - last 24 hr 11/07/22 11/07/22 11/07/22 06:00 06:00 06:00 WBC RBC Hgb Hct MCV MCH MCHC RDW Plt Count MPV Immature Gran % Neutrophils % Lymphocytes % Monocytes % Eosinophils % Basophils % Nucleated RBC % Absolute Neutrophils Absolute Lymphocytes Absolute Monocytes Absolute Eosinophils Absolute Basophils PT 9.5 INR 0.9 Sodium 138 Potassium 3.9 Chloride 101 Carbon Dioxide 29.2 Anion Gap 7.8 BUN 10 Creatinine 0.9 Est GFR (CKD-EPI 2020) 70.51 Glucose 104 Calcium 8.8 Total Bilirubin 0.5 AST 23 ALT 35 Alkaline Phosphatase 56 Total Protein 7.1 Albumin 3.7 Lipase 67 Urine Color Urine Clarity Urine pH Ur Specific [place] Urine Protein Urine Ketones Urine Blood Urine Nitrite Urine Bilirubin Urine Urobilinogen Ur Leukocyte Esterase Urine RBC Urine WBC Ur Epithelial Cells Urine Crystals Urine Bacteria Urine Casts Urine Mucus Urine Other Ur Culture Indicated? Urine Glucose 11/07/22 11/07/22 11/07/22 06:00 06:15 18:45 WBC 7.35 11.07 H RBC 4.33 4.27 Hgb 13.9 13.7 Hct 40.6 40.5 MCV 94 95 MCH 32.1 32.1 MCHC 34.2 33.8 RDW 11.9 12.0 Plt Count 225 213 MPV 8.7 9.0 Immature Gran % 0.3 0.4 Neutrophils % 63.1 92.2 Lymphocytes % 22.9 4.8 Monocytes % 12.0 2.5 Eosinophils % 1.2 0.0 Basophils % 0.5 0.1 Nucleated RBC % 0.0 0.0 Absolute Neutrophils 4.64 10.21 H Absolute Lymphocytes 1.68 0.53 L Absolute Monocytes 0.88 H 0.28 Absolute Eosinophils 0.09 0.00 Absolute Basophils 0.04 0.01 PT INR Sodium Potassium Chloride Carbon Dioxide Anion Gap BUN Creatinine Est GFR (CKD-EPI 2020) Glucose Calcium Total Bilirubin AST ALT Alkaline Phosphatase Total Protein Albumin Lipase Urine Color Yellow Urine Clarity Clear Urine pH 5.5 Ur Specific [place] <= 1.005 Urine Protein Negative Urine Ketones 15 H Urine Blood Trace-intact H Urine Nitrite Negative Urine Bilirubin Negative Urine Urobilinogen 0.2 Ur Leukocyte Esterase Negative Urine RBC 3-5 H Urine WBC 0-2 Ur Epithelial Cells Rare Urine Crystals Negative Urine Bacteria Rare Urine Casts Negative Urine Mucus Negative Urine Other Negative Ur Culture Indicated? No Urine Glucose Negative Time Spent with Patient Time Spent with Patient: <25 minutes Time was spent: preparing to see the patient(eg.review tests), obtaining and/or reviewing separately otained hiistory, ordering medications,tests, procedures, referring, communicating with other health care management specialist, indepentently interpreting results, counseling the patient and care coordination
[2022-11-08 02:40] VITALS: BP 162/87; PULSE 67; RESP 16; TEMP 37; O2SAT 94
[2022-11-08 03:54] VITALS: BP 95/40; PULSE 52; RESP 18; TEMP 36.6; O2SAT 96
[2022-11-08] MEDS: PIPERACILLIN/TAZO 3.375 GM in Normal Saline 50 ML IVPB ×2 (06:10→11:05)
[2022-11-08 07:07] LABS: Abs Immature Grans 0.01 10^3/uL (0.0-0.06); Absolute Basophil Count 0.02 10^3/uL (0.0-0.2); Absolute Eosinophil Count 0.01 10^3/uL (0.0-0.7); Absolute Lymphocyte Count 1.21 10^3/uL (1.2-3.4); Absolute Monocyte Count 0.91 10^3/uL (0.1-0.8); Absolute Neutrophil Count 5.51 10^3/uL (1.2-6.7); Basophils % 0.3; Eosinophils % 0.1; HCT 38.1 % (36.0-46.0); HGB 13.1 g/dL (11.2-15.7); Immature Grans % 0.1; Lymphocytes % 15.8; MCH 32.1 pg (27.0-33.0); MCHC 34.4 % (32.0-36.0); MCV 93 fL (80-95); MPV 9.1 fL (8.0-11.0); Monocytes % 11.9; Neutrophils % 71.8; Platelet Count 241 10^3/uL (130-400); RBC 4.08 10^6/uL (3.93-5.22); RDW 11.8 % (11.7-14.6); RDW-SD 40.5 fL; WBC 7.67 10^3/uL (4.4-10.8)
[2022-11-08 07:22] LABS: C-Reactive Protein 6.16 mg/dL (0.0-0.3)
[2022-11-08 07:23] VITALS: BP 149/69; PULSE 60; RESP 16; TEMP 37; O2SAT 100
--- NOTE | 2022-11-08 09:03 | W.PM.DS.N ---
Date of service: 11/08/22 Time of Service: 09:03 DS: Diagnosis Discharge Diagnosis (1) Suppurative appendicitis: Status: Acute (2) Acute appendicitis: Status: Acute (3) S/P laparoscopic appendectomy: (4) Anxiety: (5) GERD (gastroesophageal reflux disease): (6) Raheem's thyroiditis: Discharge Plan Disposition Patient Disposition: Home Condition: Improving Discharge Details Reason For Visit: Supurative Appendicitis Admit Date/Time: 11/07/22 13:43 Admit Provider: Carmen Rivera Attending Provider: Carmen Rivera Primary Care Provider: Eryn Mi [facility] Course Hospital Course: Patient came to the ER after 3 days of right lower quadrant pain and was found to have an acute appendicitis. She underwent uneventful laparoscopic appendectomy. She did have a suppurative appendix with a slight amount of purulent drainage, she was kept overnight for IV antibiotics. Patient declined any pain medications including Tylenol and Toradol. She is tolerating a regular diet today. She is ambulatory. Her pain is controlled. She has no fever or white count. She will follow-up in the office next week. see discharge instructions. Home Meds and New Rx's Prescriptions: No Action thyme oil Oil MISCELLANEOUS Patient Comments: 11/07/22: Pt taking thyme tincture daily, per pt. -BR Hm-Et Binder Patient Comments: 11/07/22: Taking supplement, per pt. -BR Liver Capsule PO DAILY Mineral Complex Tablet PO Discharge Instructions Additional Instructions: Keep an ice bag on the incision. 20 minutes on and 20 minutes off. Ice keeps the swelling down and swelling causes pain. Make sure you wrap the ice pack in a towel and don't apply directly to the skin. -No driving for 3 days or of you are taking narcotic pain medications. -If you have maribel or sutures in place, they will be removed at your clinic appointment in 7-10 days. [facility] Surgery Clinic: [phone] -Do Not remove any of the purple skin glue that cover the incisions. -Resume all regular medications. -Follow-up with Dr. Rivera in 1 week. November 21 2:30pm -regular diet -no straining to move bowels -pain meds are very constipating: if you do not move your bowels daily take a dose of OTC Miralax -It is ok to shower. No bathe, soaking, swimming or hot tubs -Keep wound clean and dry. Wash incision with soap and water daily. Pat dry, don't rub. -You may find that your appetite is smaller. Eat 3-6 small meals throughout the day. It is important to drink lots of water after surgery, 6-10 glasses a day. -If you were given an incentive spirometry (breathing technical services coordinator?), continue to do this 10x/hour while awake. -We do want you up walking, at least 5-6 times per day. This is very important to prevent pneumonia and blood clots. You can climb stairs, take them slowly. -No lifting over 5 pounds. This is very important to avoid developing a hernia in your incision. -You may find that you are very tired after surgery- this is normal. -please do not smoke for a minimum of 72 hours after surgery. Activity:: See above Equipment/Supplies:: No Equipment Needed Diet:: As Tolerated DS: Summary Time Spent with Patient providing and/or coordinating discharge services: Less than 30 minutes Status at Discharge Functional status at discharge: independent ambulation Overall status at discharge: patient is back to baseline Mental Status: mental status grossly normal Speech and Movement: speech and movement normal Mood: congruent mood Affect: normal affect Exam Psych Mental Status: mental status grossly normal Speech and Movement: speech and movement normal Mood: congruent mood Affect: normal affect DS: Data Vitals/I&O Vitals and I&O: Vital Signs Temperature 37.0 C 11/08/22 07:23 Temperature Source Tympanic 11/08/22 07:23 Pulse 60 11/08/22 07:23 Pulse Rhythm Regular 11/08/22 01:56 Respiratory Rate 16 11/08/22 07:23 Respiratory Effort Normal, Non-Labored 11/08/22 01:56 Respiratory Depth Normal 11/08/22 01:56 Respiratory Pattern Normal 11/08/22 01:56 Blood Pressure 149/69 H 11/08/22 07:23 Blood Pressure Position Sitting 11/07/22 05:50 Pulse Oximetry 100 11/08/22 07:23 Respiratory End-tidal CO2 30 11/07/22 14:20 Oxygen Delivery Method Room Air 11/08/22 07:23 Oxygen Flow Rate 0 07/11/23 07:23 Pain Level 0 11/08/22 07:23 Comment cy rn notified 11/08/22 03:54 Intake & Output 11/07/22 11/07/22 11/08/22 11:59 23:59 11:59 Intake Total 1290 / 2040 750 / 2040 50 / 50 Output Total 350 / 350 1100 / 1100 Balance 1290 / 1690 400 / 1690 -1050 / -1050 Weight 51.256 kg Intake: IV 1290 / 2040 750 / 2040 50 / 50 Output: Urine 350 / 350 1100 / 1100 Other: Urine Color Yellow Yellow Urine Appearance Clear Clear Urine Odor None Comment removed @ 1350, end of procedure Emesis Description None Voiding Methods Toilet Data Completed and Pending Labs on day of discharge: Labs from last 24 hours 11/08/22 11/08/22 11/07/22 06:15 06:15 18:45 WBC 7.67 11.07 H RBC 4.08 4.27 Hgb 13.1 13.7 Hct 38.1 40.5 MCV 93 95 MCH 32.1 32.1 MCHC 34.4 33.8 RDW 11.8 12.0 Plt Count 241 213 MPV 9.1 9.0 Immature Gran % 0.1 0.4 Neutrophils % 71.8 92.2 Lymphocytes % 15.8 4.8 Monocytes % 11.9 2.5 Eosinophils % 0.1 0.0 Basophils % 0.3 0.1 Nucleated RBC % 0.0 0.0 Absolute Neutrophils 5.51 10.21 H Absolute Lymphocytes 1.21 0.53 L Absolute Monocytes 0.91 H 0.28 Absolute Eosinophils 0.01 0.00 Absolute Basophils 0.02 0.01 C-Reactive Protein 6.16 H PFSH All Active Problems (Updated 11/07/22 @ 23:20 by Shay Jamison MD) Suppurative appendicitis (Acute) Acute appendicitis (Acute) Medical History (Updated 11/07/22 @ 23:20 by Shay Jamison MD) Anxiety Disease 11/07/22: Chronic inflammatory response syndrome, per pt. -BR GERD (gastroesophageal reflux disease) Raheem's thyroiditis Surgical History (Updated 11/07/22 @ 21:43 by Carmen Rivera DO) S/P laparoscopic appendectomy Social History Smoking/Tobacco Use Status: Never Smoking risk assessment performed?: Yes Alcohol Intake: never Substance use type: does not use Housing: house Do you feel safe in your relationship?: Yes Time Spent with Patient Time Spent with Patient: <45 minutes Time was spent: preparing to see the patient(eg.review tests), obtaining and/or reviewing separately otained hiistory, ordering medications,tests, procedures, referring, communicating with other health critical care unit nurse, indepentently interpreting results, counseling the patient and care coordination
--- NOTE | 2022-11-08 10:03 | W.PM.PROGNOT ---
Date of Service Date of service: 11/08/22 Time of Service: 10:03 Assessment and Plan Assessment and plan (1) Suppurative appendicitis: Status: Acute Assessment and plan: POD #1 s/p lap appendectomy Denies abdominal pain Will advance diet Encouraged ambulation and sitting in the chair No leukocytosis today D/C home if tolerating post op diet Patient seen and examined. Agree with above. See DC summary. (2) Acute appendicitis: Status: Acute (3) S/P laparoscopic appendectomy: (4) Anxiety: (5) GERD (gastroesophageal reflux disease): (6) Raheem's thyroiditis: Subjective Subjective Interval history since last seen: Arrive with patient resting comfortably. She denies having any pain, nausea or vomiting. She is eager for some breakfast and to return home. Exam Const General: cooperative, healthy appearing and comfortable Orientation: alert and oriented x3 Resp Effort & Inspection: normal respiratory effort, no audible wheezes and no cough GI Inspection: normal to inspection, non-distended and incision (with skin a fix. Mild ecchymosis ) Palpation: soft, no guarding and nontender Objective Last Vital Signs Temp 37.0 C 11/08/22 07:23 Pulse 60 11/08/22 07:23 Resp 16 11/08/22 07:23 BP 149/69 H 11/08/22 07:23 Pulse Ox 100 11/08/22 07:23 Laboratory Results - last 24 hr 11/07/22 11/08/22 11/08/22 18:45 06:15 06:15 WBC 11.07 H 7.67 RBC 4.27 4.08 Hgb 13.7 13.1 Hct 40.5 38.1 MCV 95 93 MCH 32.1 32.1 MCHC 33.8 34.4 RDW 12.0 11.8 Plt Count 213 241 MPV 9.0 9.1 Immature Gran % 0.4 0.1 Neutrophils % 92.2 71.8 Lymphocytes % 4.8 15.8 Monocytes % 2.5 11.9 Eosinophils % 0.0 0.1 Basophils % 0.1 0.3 Nucleated RBC % 0.0 0.0 Absolute Neutrophils 10.21 H 5.51 Absolute Lymphocytes 0.53 L 1.21 Absolute Monocytes 0.28 0.91 H Absolute Eosinophils 0.00 0.01 Absolute Basophils 0.01 0.02 C-Reactive Protein 6.16 H Time Spent with Patient Time Spent with Patient: <25 minutes Time was spent: preparing to see the patient(eg.review tests), obtaining and/or reviewing separately otained hiistory, ordering medications,tests, procedures, referring, communicating with other health home health care worker, indepentently interpreting results, counseling the patient and care coordination
--- NOTE | 2022-11-08 10:58 | PDOC.CMIN ---
Date of service: 11/08/22 Time of Service: 17:56 Care Management Initial Assmt Initial Assessment REASON FOR HOSPITALIZATION:: appendicitis PREVIOUS FUNCTIONAL STATUS/SOCIAL/FAMILY SUPPORTS:: Ofelia lives in [place], [place] with her Zak. They each have a daughter from a previous marriage who live out of state. Ofelia is independent at baseline and does not receive any community services. CURRENT FUNCTIONAL STATUS:: Ofelia was dressed and ready to be discharged when CM met with her. She was pleasant in interaction and agreeable tto conversation. Ofelia informed CM that she is feeling a great deal better. She shared that she has had abdominal and back pain for o a long time and when she woke up from surgery, it was all gone. She believes that her appendicitis has been present for quite some time. ADVANCE DIRECTIVES:: on file - [facility] Has patient been provided with info about the portal/API?: Yes Did the patient sign up for the portal?: No CODE STATUS:: Full Code INSURANCE COVERAGE / FINANCIAL ISSUES:: [employer] Medicare Replacement CURRENT HOME/COMMUNITY SERVICES/EQUIPMENT:: none PRIMARY CARE PHYSICIAN:: Eryn Mi POTENTIAL DISCHARGE NEEDS:: follow up with PCP and plan of care PATIENT/FAMILY EDUCATION NEEDS:: Review of discharge instructions, limitations, follow up plan, discuss Ask Me Three TRANSPORTATION:: via private vehicle with family PLAN:: Anticipate Ofelia will be discharged home with no new services. She will follow up with her community providers and plan of care and transport with family. CM will follow and assess for discharge needs. PFSH All Active Problems (Updated 11/07/22 @ 23:20 by Shay Jamison MD) Suppurative appendicitis (Acute) Acute appendicitis (Acute) Medical History (Updated 11/07/22 @ 23:20 by Shay Jamison MD) Anxiety Disease 11/07/22: Chronic inflammatory response syndrome, per pt. -BR GERD (gastroesophageal reflux disease) Raheem's thyroiditis Surgical History (Updated 11/07/22 @ 21:43 by Carmen Rivera DO) S/P laparoscopic appendectomy Social History Smoking/Tobacco Use Status: Never Smoking risk assessment performed?: Yes Alcohol Intake: never Substance use type: does not use Housing: house Do you feel safe in your relationship?: Yes
== END 2022-11-08 13:57 | disposition home or self-care (01) ==
LOC: ER 08:47 → DSU 10:13 → SUR 10:14 → MS 11-08 09:07 → ER 11-09 09:47 → SUR 11-09 09:47
PROVIDERS: Admitting Provider Surgery; Emergency Provider Emergency Medicine Emergency Medical Services; PCP Nurse Practitioner Family; Visit Provider Surgery
PROC: 0DTJ4ZZ Resection of Appendix, Percutaneous Endoscopic Approach (ICD-10-PCS; CPT 44970; principal; 2022-11-07 12:00)
DX: K35.80 Unspecified acute appendicitis (principal); E06.3 Autoimmune thyroiditis; K21.9 Gastro-esophageal reflux disease without esophagitis; F41.9 Anxiety disorder, unspecified; R65.10 Systemic inflammatory response syndrome (SIRS) of non-infectious origin without acute organ dysfunction
CPT/HCPCS: 44970; 36415; 80053; 83690; 93005; 99223; 74177; 81003; 81015; 85025; 85610; 86140; 88304; 93010; J0131; J0295; J1100; J1885; J2001; J2250; J2405; J2543; J2704; J3490

== ENCOUNTER → 2022-11-24 15:22 | Outpatient (BNVA) | payer MEDICARE, SELFPAY | PROVIDERS: PCP Nurse Practitioner Family; Referring Provider Nurse Practitioner Family; Visit Provider Physical Therapy Assistant | DX: Z48.815 Encounter for surgical aftercare following surgery on the digestive system (principal) ==